=== PATIENT | female | born 1965 | race Caucasian/White ===

== ENCOUNTER 2017-07-09 08:49 | Emergency (ER) | payer OTHER, SELFPAY ==
[2017-07-09] MEDS ORDERED: NA CHLORIDE 0.9% 1,000 ML ONE (09:17)
[2017-07-09] MEDS ORDERED: ONDANSETRON 4 MG/2 ML VIAL ONE (09:17)
[2017-07-09] MEDS ORDERED: MORPHINE 4 MG/ML SYR ONE (09:17)
[2017-07-09 09:36] LABS: Hematocrit 46.2 % (36.0-45.0); MCV 87.7 fL (80-100); RBC Red Blood Cell Count 5.27 M/uL (3.86-4.86)
[2017-07-09 09:37] LABS: Absolute Monocytes 0.5 K/uL (0.1-1.3); Absolute Neutrophil 3.7 K/uL (1.8-8.0); Basophils % 0.9 % (0-1.3); Eosinophils % 2.1 % (0-4.4); Lymphocytes % 40.3 % (15.3-44.8); MPV 8.3 fL (7.6-11.3)
[2017-07-09 09:44] LABS: Bicarbonate 26 mEq/L (21-31); Glucose Level 146 mg/dL (65-120); Potassium 3.7 mEq/L (3.6-5.0); Sodium Level 139 mEq/L (135-145)
[2017-07-09 09:50] LABS: ALT/SGPT 23 IU/L (10-60); AST/SGOT 24 IU/L (10-42); Albumin 4.2 g/dL (3.2-5.5); Alkaline Phosphatase 78 IU/L (42-121); BUN Blood Urea Nitrogen 12 mg/dL (6-20); Bilirubin Direct 0.1 mg/dL (0-0.2); Bilirubin Total 0.9 mg/dL (0.3-1.2); Protein, Total 8.1 g/dL (6.0-8.3)
[2017-07-09 10:01] LABS: Urine Blood TRACE (NEG); Urine Glucose NEGATIVE (NEG); Urine Protein TRACE (NEG); Urine Specific Gravity 1.025 (1.005-1.030); Urine pH 6.5 (5.0-7.0)
[2017-07-09 10:16] LABS: Urine Amorphous Sediment 2+ /HPF (NONE SEEN); Urine Bacteria >50 /HPF (<20); Urine Culture Reflex Order REFLEXED; Urine RBC <5 /HPF (NONE SEEN)
--- NOTE | 2017-07-09 10:33 | RAD REPORT ---
EXAM DESCRIPTION: CT - Abdomen Pelvis W Contrast - 07/09/2017 10:20 am CLINICAL HISTORY: Abdominal pain right lower quadrant pain COMPARISON: none. TECHNIQUE: Computed axial tomography of the abdomen pelvis was obtained. 100 cc Isovue-300 was admin istered intravenously. Oral contrast was not requested which limits evaluation of bowel. All CT scans are performed using dose optimization technique as appropriate and may include automated exposure control or mA/KV adjustment according to patient size. FINDINGS: Fatty infiltration liver is present. A small hiatal hernia is seen Spleen, pancreas, adrenal and kidneys appear unremarkable. A sigmoidectomy has been performed. Diverticula are noted without evidence of diverticulitis. A large right inguinal hernia contains nondilated large and small bowel. The neck measures 5.8 centim eters. The herniated sac measures 15 centimeters. The appendix lies within the herni and is not clear ly visualized. IMPRESSION: Large right inguinal hernia containing small and large bowel.
--- NOTE | 2017-07-09 11:39 | ER ---
Nurse's Notes [facility] Name: Carin Mendoza Age: 51 yrs Sex: Female : 1965 Arrival Date: 07/09/2017 Time: 08:52 Bed 7 Private MD: out of town, doctor Diagnosis: Right inguinal hernia Presentation: 07/09 09:00 Presenting complaint: Patient states: RLQ pain got worse since yesterday. Has not jl7 followed up with Dr. Varghese, pt reports "I'm waiting on insurance, I can't afford it.". Transition of care: patient was not received from another setting of care. Onset of symptoms was July 08, 2017. Risk Assessment: Do you want to hurt yourself or someone else? Patient reports no desire to harm self or others. Initial Sepsis Screen: Does the patient meet any 2 criteria? No. Patient's initial sepsis screen is negative. Does the patient have a suspected source of infection? No. Patient's initial sepsis screen is negative. Care prior to arrival: None. 09:00 Method Of Arrival: Wheelchair jl7 09:00 Acuity: NOELLE 3 jl7 Triage Assessment: 09:02 General: Appears uncomfortable, Behavior is crying. Pain: Complains of pain in right jl7 lower quadrant Pain currently is 10 out of 10 on a pain scale. Pain began 1 day ago. Is continuous. EENT: No signs and/or symptoms were reported regarding the EENT system. Neuro: Level of Consciousness is awake, alert, obeys commands, Oriented to person, place, time, situation. Cardiovascular: Patient's skin is warm and dry. Respiratory: Airway is patent Respiratory effort is even, unlabored, Respiratory pattern is regular, symmetrical. GI: Abdomen is round non-distended. : No signs and/or symptoms were reported regarding the genitourinary system. Derm: Skin is pink, warm \\T\\ dry. Musculoskeletal: No signs and/or symptoms reported regarding the musculoskeletal system. 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 - Social history:: Smoking status: Patient uses tobacco products, smokes one-half pack cigarettes per day, Patient uses alcohol, on a daily basis. admits to "couple of beers" a day. Patient/guardian denies using street drugs. - Ebola Screening: : Patient negative for fever greater than or equal to 101.5 degrees Fahrenheit, and additional compatible Ebola Virus Disease symptoms Patient denies exposure to infectious person Patient denies travel to an Ebola-affected area in the 21 days before illness onset No symptoms or risks identified at this time. Screenin:23 Abuse screen: Denies threats or abuse. Denies injuries from another. Nutritional jl7 screening: No deficits noted. Tuberculosis screening: No symptoms or risk factors identified. Fall Risk IV access (20 points). Total Pressley Fall Scale indicates No Risk (0-24 pts). Assessment: 09:23 General: See triage assessment. jl7 10:30 Reassessment: Patient and/or family updated on plan of care and expected duration. Pain jl7 level reassessed. Patient is alert, oriented x 3, equal unlabored respirations, skin warm/dry/pink. Patient states feeling better. 11:30 Reassessment: Patient and/or family updated on plan of care and expected duration. Pain jl7 level reassessed. Patient is alert, oriented x 3, equal unlabored respirations, skin warm/dry/pink. 11:36 Reassessment: Dr. Mcleod at bedside discussing plan of care. jl7 Vital Signs: 09:02 BP 170 / 73; Pulse 96; Resp 22 S; Temp 99.6(O); Pulse Ox 100% on R/A; Weight 81.65 kg jl7 (R); Height 5 ft. 2 in. (157.48 cm) (R); Pain 10/10; 10:00 BP 140 / 69; Pulse 66; Resp 16; Pulse Ox 100% ; jl7 11:00 BP 157 / 86; Pulse 73; Resp 16; Pulse Ox 100% ; jl7 11:30 BP 128 / 72; Pulse 86; Resp 16; Pulse Ox 100% ; jl7 09:02 Body Mass Index 32.92 (81.65 kg, 157.48 cm) jl7 ED Course: 08:52 Patient arrived in ED. mr 08:52 Gomes, Jahala, RN is Primary Nurse. jl7 08:52 out of town, doctor is Private Physician. mr 09:01 Triage completed. jl7 09:01 Jamarcus Mcleod MD is Attending Physician. kdr 09:02 Arm band placed on right wrist. jl7 09:15 Missed attempt(s): 20 gauge in left antecubital area. jl7 09:18 Missed attempt(s): 22 gauge in right forearm. jl7 09:22 Initial lab(s) drawn, by me, sent to lab. Inserted saline lock: 20 gauge in right aa5 forearm, using aseptic technique. Blood collected. 09:23 Patient has correct armband on for positive identification. Placed in gown. Bed in low jl7 position. Call light in reach. Side rails up X 1. Pulse ox on. NIBP on. Warm blanket given. 09:46 Urine collected: clean catch specimen, santhosh colored. dh3 10:16 CT completed. Patient tolerated procedure well. Patient moved to CT via wheelchair. Patient moved back from CT. 10:20 CT Abd/Pelvis - W/Contrast In Process Unspecified. EDMS 11:52 No provider procedures requiring assistance completed. IV discontinued, intact, jl7 bleeding controlled, No redness/swelling at site. Pressure dressing applied. Administered Medications: 09:24 Drug: NS 0.9% 1000 ml Route: IV; Rate: 1 bolus; Site: right forearm; aa5 10:30 Follow up: Response: No adverse reaction; IV Status: Completed infusion jl7 09:24 Drug: morphine 4 mg Route: IVP; Site: right forearm; aa5 10:30 Follow up: Response: No adverse reaction; Pain is decreased jl7 09:24 Drug: Zofran 4 mg Route: IVP; Site: right forearm; aa5 10:30 Follow up: Response: No adverse reaction; Pain is decreased jl7 Outcome: 11:39 Discharge ordered by . kdr 11:52 Discharged to home ambulatory, with family. jl7 11:52 Condition: stable 11:52 Discharge instructions given to patient, Instructed on discharge instructions, follow up and referral plans. medication usage, Demonstrated understanding of instructions, follow-up care, medications, Prescriptions given X 2. 11:53 Patient left the ED. jl7 Signatures: Dispatcher [employer] EDDC Jamarcus Mcleod MD MD kdr Rivera, Maria mr Jones, Nelly Murdock, Giuliana, RN RN aa5 Evon Gomes RN RN jl7 Amelia Hercules 3
--- NOTE | 2017-07-09 11:39 | EDPHYS ---
Physician Documentation [facility] Name: Carin Mendoza Age: 51 yrs Sex: Female : 1965 Arrival Date: 07/09/2017 Time: 08:52 Bed 7 Private MD: out of town, doctor ED Physician Jamarcus Mcleod HPI: 07/09 09:12 This 51 yrs old Female presents to ER via Wheelchair with complaints of RLQ kdr Hernia. 09:12 The patient presents with abdominal pain right lower quadrant, abdominal distention in kdr the right lower quadrant. Onset: The symptoms/episode began/occurred gradually, 1 week(s) ago. The symptoms do not radiate. Associated signs and symptoms: Pertinent positives: nausea and vomiting, Pertinent negatives: palpitations, shortness of breath, vaginal discharge, vomiting blood. The symptoms are described as constant, sharp, vague. Modifying factors: The symptoms are alleviated by nothing, the symptoms are aggravated by breathing deeply, movement, pressure, touching the area. Severity of pain: At its worst the pain was severe in the emergency department the pain is unchanged. The patient has experienced similar episodes in the past, a few times, but today's symptoms are worse, more painful. The patient has been recently seen by a physician: Dr. Varghese about a month ago. 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 - Social history:: Smoking status: Patient uses tobacco products, smokes one-half pack cigarettes per day, Patient uses alcohol, on a daily basis. admits to "couple of beers" a day. Patient/guardian denies using street drugs. - Ebola Screening: : Patient negative for fever greater than or equal to 101.5 degrees Fahrenheit, and additional compatible Ebola Virus Disease symptoms Patient denies exposure to infectious person Patient denies travel to an Ebola-affected area in the 21 days before illness onset No symptoms or risks identified at this time. ROS: 09:12 Constitutional: Negative for fever, chills, and weight loss, Eyes: Negative for injury, kdr pain, redness, and discharge, ENT: Negative for injury, pain, and discharge, Neck: Negative for injury, pain, and swelling, Cardiovascular: Negative for chest pain, palpitations, and edema, Respiratory: Negative for shortness of breath, cough, wheezing, and pleuritic chest pain, Back: Negative for injury and pain, : Negative for injury, bleeding, discharge, and swelling, MS/Extremity: Negative for injury and deformity, Skin: Negative for injury, rash, and discoloration, Neuro: Negative for headache, weakness, numbness, tingling, and seizure activity. Psych: Negative for depression, anxiety, suicide ideation, homicidal ideation, and hallucinations, Allergy/Immunology: Negative for hives, rash, and allergies, Endocrine: Negative for neck swelling, polydipsia, polyuria, polyphagia, and marked weight changes, Hematologic/Lymphatic: Negative for swollen nodes, abnormal bleeding, and unusual bruising. 09:12 Abdomen/GI: Positive for abdominal pain, nausea and vomiting, Negative for diarrhea, constipation, abdominal cramps, abdominal distension, anorexia, dysphagia, hematemesis, black/tarry stool, rectal pain, rectal bleeding, bowel incontinence. Exam: 09:12 Constitutional: This is a well developed, well nourished patient who is awake, alert, kdr and in no acute distress. Head/Face: Normocephalic, atraumatic. Eyes: Pupils equal round and reactive to light, extra-ocular motions intact. Lids and lashes normal. Conjunctiva and sclera are non-icteric and not injected. Cornea within normal limits. Periorbital areas with no swelling, redness, or edema. Neck: Trachea midline, no thyromegaly or masses palpated, and no cervical lymphadenopathy. Supple, full range of motion without nuchal rigidity, or vertebral point tenderness. No Meningismus. Chest/axilla: Normal chest wall appearance and motion. Nontender with no deformity. No lesions are appreciated. Cardiovascular: Regular rate and rhythm with a normal S1 and S2. No gallops, murmurs, or rubs. Normal PMI, no JVD. No pulse deficits. Respiratory: Lungs have equal breath sounds bilaterally, clear to auscultation and percussion. No rales, rhonchi or wheezes noted. No increased work of breathing, no retractions or nasal flaring. Back: No spinal tenderness. No costovertebral tenderness. Full range of motion. Skin: Warm, dry with normal turgor. Normal color with no rashes, no lesions, and no evidence of cellulitis. MS/ Extremity: Pulses equal, no cyanosis. Neurovascular intact. Full, normal range of motion. Neuro: Awake and alert, GCS 15, oriented to person, place, time, and situation. Cranial nerves II-XII grossly intact. Motor strength 5/5 in all extremities. Sensory grossly intact. Cerebellar exam normal. Normal gait. Psych: Awake, alert, with orientation to person, place and time. Behavior, mood, and affect are within normal limits. 09:12 Abdomen/GI: Inspection: obese Bowel sounds: active, diminished, in all quadrants, Palpation: soft, moderate abdominal tenderness, in the right lower quadrant, mass, is not appreciated, rebound tenderness, is appreciated in the right lower quadrant. Vital Signs: 09:02 BP 170 / 73; Pulse 96; Resp 22 S; Temp 99.6(O); Pulse Ox 100% on R/A; Weight 81.65 kg 7 (R); Height 5 ft. 2 in. (157.48 cm) (R); Pain 10/10; 10:00 BP 140 / 69; Pulse 66; Resp 16; Pulse Ox 100% ; jl7 11:00 BP 157 / 86; Pulse 73; Resp 16; Pulse Ox 100% ; 7 11:30 BP 128 / 72; Pulse 86; Resp 16; Pulse Ox 100% ; 7 09:02 Body Mass Index 32.92 (81.65 kg, 157.48 cm) [facility] MDM: 09:01 Patient medically screened. [facility] 09:12 Data reviewed: vital signs, nurses notes, lab test result(s), radiologic studies. kdr 07/09 09:12 Order name: Basic Metabolic Panel; Complete Time: 11:20 kdr 07/09 09:12 Order name: CBC with Diff; Complete Time: 11:20 [facility] 07/09 09:12 Order name: Creatinine for Radiology; Complete Time: 11:20 kdr 07/09 09:12 Order name: Hepatic Function; Complete Time: 11:20 kdr 07/09 09:12 Order name: Urine Microscopic Only; Complete Time: 11:20 [facility] 07/09 09:59 Order name: Urine Dipstick--Ancillary (enter results); Complete Time: 11:20 ag 07/09 09:12 Order name: IV Saline Lock; Complete Time: 09:24 kdr 07/09 09:12 Order name: Labs collected and sent; Complete Time: :24 kdr 07/09 09:12 Order name: Urine Dipstick-Ancillary (obtain specimen); Complete Time: 09:46 kdr 07/09 09:12 Order name: CT Abd/Pelvis - W/Contrast; Complete Time: 11:20 kdr 07/09 10:18 Order name: Urine Culture EDMS Administered Medications: :24 Drug: NS 0.9% 1000 ml Route: IV; Rate: 1 bolus; Site: right forearm; aa5 10:30 Follow up: Response: No adverse reaction; IV Status: Completed infusion jl7 :24 Drug: morphine 4 mg Route: IVP; Site: right forearm; aa5 10:30 Follow up: Response: No adverse reaction; Pain is decreased jl7 09:24 Drug: Zofran 4 mg Route: IVP; Site: right forearm; aa5 10:30 Follow up: Response: No adverse reaction; Pain is decreased jl7 Disposition: 07/09/17 11:39 Discharged to Home. Impression: Right inguinal hernia. - Condition is Fair. - Discharge Instructions: Hernia, [id number], Inguinal Hernia, Adult. - Prescriptions for Zofran 4 mg Oral Tablet - take 1 tablet by ORAL route every 4-6 hours As needed; 15 tablet. Tramadol 50 mg Oral Tablet - take 1 tablet by ORAL route every 4-6 hours As needed as needed; 20 tablet. - Medication Reconciliation Form, Thank You Letter, Prescription Opioid Use form. - Follow up: Private Physician; When: 2 - 3 days; Reason: If symptoms return, Further diagnostic work-up, Recheck today's complaints, Continuance of care, Re-evaluation by your physician. - Problem is new. - Symptoms have improved. Signatures: Dispatcher [employer] EDOH Jamarcus Mcleod MD MD kdr Calderon, Audri RN RN aa5 Evon Gomes RN RN jl7 Corrections: (The following items were deleted from the chart) 11:53 11:39 07/09/2017 11:39 Discharged to Home. Impression: Right inguinal hernia. Condition jl7 is Fair. Forms are Medication Reconciliation Form, Thank You Letter, Antibiotic Education, Prescription Opioid Use. Follow up: Private Physician; When: 2 - 3 days; Reason: If symptoms return, Further diagnostic work-up, Recheck today's complaints, Continuance of care, Re-evaluation by your physician. Problem is new. Symptoms have improved. kdr
== END 2017-07-09 11:53 | disposition home or self-care (01) ==
LOC: ER 08:49
DX: K40.90 Unilateral inguinal hernia, without obstruction or gangrene, not specified as recurrent (principal); I10 Essential (primary) hypertension; F17.210 Nicotine dependence, cigarettes, uncomplicated; Z88.8 Allergy status to other drugs, medicaments and biological substances
CPT/HCPCS: 36415; 74177; 80048; 80076; 81003; 81015; 85025; 87086; 87088; 96361; 96374; 96375; 99284; J2405; J7030; Q9967

== ENCOUNTER 2022-04-09 07:46 | Inpatient (IN) | payer OTHER ==
--- OUTSIDE RECORDS SUMMARY | 2022-04-09 07:50 | XMS REPORT | Continuity of Care Document ---
:1965 Author Organization [facility] t Address [address] [facility] [address] [place] [id number] Care Team Providers Name Role Phone KELI Attending Clinician Unavailable KELI Admitting Clinician Unavailable Problems This patient has no known problems. Allergies, Adverse Reactions, Alerts This patient has no known allergies or adverse reactions. Medications This patient has no known medications. Procedures This patient has no known procedures. Encounters Start End Encounter Admission Attending Care Care Encounter Source Date/Time Date/Time Type Type Clinicians Facility Department ID 2021-12-04 2021-12-04 Outpatient IDALIA FRIEDMAN [id number] 16:33:04 16:33:04 [address] 2021-08-24 2021-08-24 Outpatient DIANE PLASCENCIA [facility] [address] 09:38:00 09:38:00 _RENETTA [id number] [facility] Program Results This patient has no known results.
[2022-04-09] MEDS ORDERED: MORPHINE 4 MG/ML SYR ONE (08:21)
[2022-04-09] MEDS ORDERED: NA CHLORIDE 0.9% 500 ML ONE (08:21)
[2022-04-09] MEDS ORDERED: ONDANSETRON 4 MG/2 ML VIAL ONE ×2 (08:21→12:56)
[2022-04-09 08:23] LABS: Absolute Lymphocytes (CBC) 3.2 K/uL (0.7-4.9); Hematocrit 47.9 % (36.0-45.0); Lymphocytes % 36.3 % (15.3-44.8); RBC Red Blood Cell Count 5.44 M/uL (3.86-4.86)
[2022-04-09 08:40] LABS: Albumin 3.7 g/dL (3.4-5.0); Bilirubin Total 0.3 mg/dL (0.2-1.0); Potassium 4.1 mmol/L (3.5-5.1)
[2022-04-09 09:21] LABS: Urine Blood Negative (Negative); Urine Glucose Negative (Negative); Urine Protein Negative (Negative)
--- NOTE | 2022-04-09 10:13 | RAD REPORT ---
EXAM DESCRIPTION: CT - Abdomen Pelvis W Contrast - 04/09/2022 9:03 am CLINICAL HISTORY: ABD PAIN COMPARISON: Abdomen Pelvis W Contrast dated 07/09/2017 TECHNIQUE: Thin cut axial CT imaging of the abdomen and pelvis was performed following intravenous a dministration of 95 mL Isovue 300. Multiplanar reformats were generated and reviewed. All CT scans are performed using dose optimization technique as appropriate and may include automated exposure control or mA/KV adjustment according to patient size. FINDINGS: No suspicious findings in the lung bases. The liver, spleen, and pancreas show no suspicious findings. Patient is status post cholecystectomy. No significant intra or extrahepatic biliary ductal dilation. Symmetric renal function is seen with no hydronephrosis or suspicious renal mass. No free air, free fluid or inflammatory stranding. Large right lower quadrant ventral hernia, grossly stable in size, containing loops of small bowel, a s well as a long segment of the ascending colon. There are moderately distended fluid-filled small dev wel loops, with air-fluid levels, with a transition point suspected along the medial lower aspect of the hernia sac, see axial image 80/98, and coronal image 23/123. Sequelae of distal colon resection w ith a colorectal anastomosis are noted. The urinary bladder is without significant finding. No suspicious bony findings. IMPRESSION: Distended small bowel loops, with a focal transition point at the level of the ileum, pr esent within the medial lower aspect of a large right lower quadrant ventral hernia sac, concerning f or small bowel obstruction. The findings were communicated to Jadon Tuttle on 04/09/2022 at 10:08 hours.
--- NOTE | 2022-04-09 10:30 | EDPHYS ---
Physician Documentation [facility] Name: Carin Mendoza Age: 56 yrs Sex: Female : 1965 Arrival Date: 04/09/2022 Time: 07:50 Bed 16 Private MD: ED Physician Simba Yousif HPI: 04/09 08:33 This 56 yrs old Female presents to ER via Ambulatory with complaints of rn Abdominal Pain - hernia. 08:33 The patient presents with abdominal pain abdominal distention. Onset: The rn symptoms/episode began/occurred last night. The symptoms do not radiate. Associated signs and symptoms: Pertinent positives: diarrhea, nausea, Pertinent negatives: blood in stools, chest pain, constipation, fever, shortness of breath. The symptoms are described as crampy, sharp. Modifying factors: The symptoms are alleviated by nothing, the symptoms are aggravated by touching the area. Severity of pain: At its worst the pain was moderate in the emergency department the pain is unchanged. The patient has not experienced similar symptoms in the past. The patient has not recently seen a physician. Historical: - Allergies: 07:56 Axid; ap3 - PMHx: 07:56 Diabetes - NIDDM; Hyperlipidemia; Hypertension; ap3 - Immunization history:: Client reports receiving the 2nd dose of the Covid vaccine. - Social history:: Smoking status: Patient reports the use of cigarette tobacco products, smokes one pack cigarettes per day. - Family history:: not pertinent. - Hospitalizations: : No recent hospitalization is reported. ROS: 08:33 Constitutional: Negative for fever, chills, and weight loss, Eyes: Negative for injury, rn pain, redness, and discharge, Neck: Negative for injury, pain, and swelling, Cardiovascular: Negative for chest pain, palpitations, and edema, Respiratory: Negative for shortness of breath, cough, wheezing, and pleuritic chest pain, Abdomen/GI: + lower abd pain and nausea Back: Negative for injury and pain, : Negative for injury, bleeding, discharge, and swelling, MS/Extremity: Negative for injury and deformity, Skin: Negative for injury, rash, and discoloration, Neuro: Negative for headache, weakness, numbness, tingling, and seizure. Exam: 08:33 Constitutional: This is a well developed, well nourished patient who is awake, alert, rn and in no acute distress. Head/Face: Normocephalic, atraumatic. Cardiovascular: Regular rate and rhythm. No pulse deficits. Respiratory: No increased work of breathing, no retractions or nasal flaring. Abdomen/GI: soft, + RLQ tenderness with large hernia, no skin changes, hernia soft. No peritoneal signs. Skin: Warm, dry MS/ Extremity: Pulses equal, no cyanosis. Neuro: Awake and alert, GCS 15 Vital Signs: 07:54 BP 157 / 80; Pulse 80; Resp 19; Temp 98.2; Pulse Ox 98% ; Pain 0/10; ap3 07:57 BP 161 / 98; Pulse 77; Resp 16; Pulse Ox 98% on R/A; db 09:30 BP 118 / 67; Pulse 67; Resp 18; Pulse Ox 97% on R/A; db 10:00 BP 131 / 76; Pulse 66; Resp 16; Pulse Ox 96% on R/A; db 10:30 BP 126 / 65; Pulse 57; Resp 18; Pulse Ox 100% on R/A; db 11:05 BP 149 / 91; Pulse 68; Resp 18; Pulse Ox 100% on R/A; db 12:00 BP 124 / 60; Pulse 68; Resp 18; Pulse Ox 96% on R/A; db MDM: 07:56 Patient medically screened. rn 10:27 Differential diagnosis: bowel obstruction, non-specific abd pain, Perf. Duodenal Ulcer, rn Peritonitis, bowel obstruction, incarcerated hernia. Data reviewed: vital signs, nurses notes, lab test result(s), radiologic studies, CT scan, and as a result, I will admit patient. Consideration of Admission/Observation Patient was admitted/placed on observation. Escalation of care including admission/observation considered. Management of patient was discussed with the following: Manager Implementation: Management of case discussed with Dr. Plunkett, no need for NG tube if not vomiting. Wants admission to hospitalist service.. I considered the following discharge prescriptions or medication management in the emergency department Medications were administered in the Emergency Department. See MAR. Independent interpretation of the following test(s) in the Emergency Department CT Scan: My interpretation is CT abdomen images with obvious small bowel obstruction and large amount of contents in hernia. Counseling: I had a detailed discussion with the patient and/or guardian regarding: the historical points, exam findings, and any diagnostic results supporting the discharge/admit diagnosis, lab results, radiology results, the need for further work-up and treatment in the hospital. Response to treatment: the patient's symptoms have mildly improved after treatment, and as a result, I will admit patient. 04/09 07:59 Order name: CBC with Diff; Complete Time: 08:41 rn 04/09 07:59 Order name: CMP; Complete Time: 08:41 rn 04/09 07:59 Order name: Lipase; Complete Time: 08:41 rn 04/09 07:59 Order name: CT Abd/Pelvis - IV Contrast Only; Complete Time: 10:23 rn 04/09 07:59 Order name: IV Saline Lock; Complete Time: 08:18 rn 04/09 07:59 Order name: Labs collected and sent; Complete Time: 08:18 rn 04/09 09:10 Order name: Urine Dipstick-Ancillary (obtain specimen); Complete Time: 09:14 rn 04/09 09:21 Order name: Urine Dipstick-Ancillary; Complete Time: 09:46 EDMS 04/09 11:58 Order name: SARS-COV-2 Antigen Rapid bd 04/09 11:59 Order name: NPO EDMS Administered Medications: 08:20 Drug: NS 0.9% 500 ml Route: IV; Rate: bolus; Site: left antecubital; db 09:36 Follow up: Response: No adverse reaction; IV Status: Completed infusion; IV Intake: db 500ml 08:21 Drug: morphine 4 mg Route: IVP; Infused Over: 4 mins; Site: left antecubital; db 09:36 Follow up: Response: No adverse reaction; Pain is decreased db 08:21 Drug: Zofran (Ondansetron) 4 mg Route: IVP; Site: left antecubital; db 09:36 Follow up: Response: No adverse reaction; Nausea is decreased db 11:37 Drug: Zosyn (piperacillin-tazobactam) 3.375 grams Route: IVPB; Infused Over: 60 mins; db Site: left antecubital; 12:18 Follow up: Response: No adverse reaction; IV Status: Completed infusion; IV Intake: db 100ml 12:00 Drug: Phenergan (promethazine) 12.5 mg Route: IVP; Site: left antecubital; db 12:18 Follow up: Response: No adverse reaction db Disposition Summary: 04/09/22 10:29 Hospitalization Ordered Hospitalization Status: Inpatient Admission rn Provider: Alfred Yousif rn Location: Telemetry/MedSurg (Inpatient) rn Condition: Stable rn Problem: new rn Symptoms: have improved rn Bed/Room Type: Standard rn Room Assignment: rn Diagnosis - Other and unspecified ventral hernia with obstruction, without gangrene rn Forms: - Medication Reconciliation Form rn - SBAR form rn Signatures: Dispatcher [employer] EDMS Simba Yousif MD MD rn Prokisch, Amanda, RN RN ap3 Patience Smith RN RN db Corrections: (The following items were deleted from the chart) 07:57 07:56 Home Meds: ranitidine HCl 75 mg Oral tab 1 tab once daily; ap3 ap3
--- NOTE | 2022-04-09 10:30 | ER ---
Nurse's Notes [facility] Name: Carin Mendoza Age: 56 yrs Sex: Female : 1965 Arrival Date: 04/09/2022 Time: 07:50 Bed 16 Private MD: Diagnosis: Other and unspecified ventral hernia with obstruction, without gangrene Presentation: 04/09 07:54 Chief complaint: Patient states: she started having diarrhea 2-3 days ago, and ap3 abdominal pain which started yesterday. patient reports she is unsure if it is all related to her unrepaired hernia or not. patient states she feels like her hernia is hard, and it typically is not that way. Coronavirus screen: At this time, the client does not indicate any symptoms associated with coronavirus-19. Ebola Screen: No symptoms or risks identified at this time. Initial Sepsis Screen: Does the patient meet any 2 criteria? No. Patient's initial sepsis screen is negative. Does the patient have a suspected source of infection? No. Patient's initial sepsis screen is negative. Risk Assessment: Do you want to hurt yourself or someone else? Patient reports no desire to harm self or others. Onset of symptoms was April 06, 2022. 07:54 Method Of Arrival: Ambulatory ap3 07:54 Acuity: NOELLE 3 ap3 Triage Assessment: 07:57 General: Appears uncomfortable, Behavior is calm, cooperative, appropriate for age. ap3 Pain: Complains of pain in right upper quadrant, left upper quadrant and right lower quadrant Pain currently is 0 out of 10 on a pain scale. at worst was 10 out of 10 on a pain scale. Neuro: Level of Consciousness is awake, alert, obeys commands, Oriented to person, place, time, situation. Cardiovascular: Patient's skin is warm and dry. Respiratory: Airway is patent Respiratory effort is even, unlabored, Respiratory pattern is regular, symmetrical. GI: Reports lower abdominal pain, upper abdominal pain, diarrhea. Historical: - Allergies: 07:56 Axid; ap3 - PMHx: 07:56 Diabetes - NIDDM; Hyperlipidemia; Hypertension; ap3 - Immunization history:: Client reports receiving the 2nd dose of the Covid vaccine. - Social history:: Smoking status: Patient reports the use of cigarette tobacco products, smokes one pack cigarettes per day. - Family history:: not pertinent. - Hospitalizations: : No recent hospitalization is reported. Screenin:58 Abuse screen: Denies threats or abuse. Nutritional screening: No deficits noted. ap3 Tuberculosis screening: No symptoms or risk factors identified. 12:22 [facility] ED Fall Risk Assessment (Adult) History of falling in the last 3 months, db including since admission No falls in past 3 months (0 pts) Confusion or Disorientation No (0 pts) Intoxicated or Sedated No (0 pts) Impaired Gait No (0 pts) Mobility Assist Device Used No (0 pt) Altered Elimination No (0 pt) Score/Fall Risk Level 0 - 2 = Low Risk Oriented to surroundings, Maintained a safe environment. Assessment: 08:10 Reassessment: Patient appears in no apparent distress at this time. Patient and/or db family updated on plan of care and expected duration. Pain level reassessed. Patient is alert, oriented x 3, equal unlabored respirations, skin warm/dry/pink. patient complains abdominal hernia that she has had for several years. States pain has recently increased and feels like has "cramping" abdominal pain. Patient denies difficulty voiding. Noted large right lower abdominal hernia the size of a cantaloupe. General: Appears in no apparent distress. comfortable, Behavior is calm, cooperative. Pain: Complains of pain in abdomen and right lower quadrant. Neuro: Level of Consciousness is awake, alert, obeys commands, Oriented to person, place, time, situation, Speech is normal. Respiratory: No deficits noted. Airway is patent Respiratory effort is even, unlabored, Respiratory pattern is regular, symmetrical. GI: Bowel sounds present X 4 quads. Abd is soft Abdomen is tender to palpation in right lower quadrant. 08:10 Pain: Pain currently is 10 out of 10 on a pain scale. db 08:10 Reassessment: Patient appears in no apparent distress at this time. Patient and/or db family updated on plan of care and expected duration. Pain level reassessed. Patient is alert, oriented x 3, equal unlabored respirations, skin warm/dry/pink. Patient states feeling better. Patient states symptoms have improved. Pain: Pain currently is 0 out of 10 on a pain scale. 10:34 Reassessment: Patient appears in no apparent distress at this time. Patient and/or db family updated on plan of care and expected duration. Pain level reassessed. Patient is alert, oriented x 3, equal unlabored respirations, skin warm/dry/pink. 10:51 Reassessment: Patient appears in no apparent distress at this time. Patient and/or db family updated on plan of care and expected duration. Pain level reassessed. Patient is alert, oriented x 3, equal unlabored respirations, skin warm/dry/pink. hospitalist at patient bedside Patient denies pain at this time. Patient states feeling better. 11:05 Reassessment: Patient appears in no apparent distress at this time. Patient and/or db family updated on plan of care and expected duration. Pain level reassessed. Patient is alert, oriented x 3, equal unlabored respirations, skin warm/dry/pink. Patient states feeling better. 11:49 Reassessment: Patient complaining of nausea. Notified Dr. Yousif. New order for db phenergan received. 12:05 Reassessment: Surgery consent signed and on the chart. db 12:05 Reassessment: Patient appears in no apparent distress at this time. Patient and/or db family updated on plan of care and expected duration. Pain level reassessed. Patient is alert, oriented x 3, equal unlabored respirations, skin warm/dry/pink. patient to OR via wheelchair with nurse. Vital Signs: 07:54 BP 157 / 80; Pulse 80; Resp 19; Temp 98.2; Pulse Ox 98% ; Pain 0/10; ap3 07:57 BP 161 / 98; Pulse 77; Resp 16; Pulse Ox 98% on R/A; db 09:30 BP 118 / 67; Pulse 67; Resp 18; Pulse Ox 97% on R/A; db 10:00 BP 131 / 76; Pulse 66; Resp 16; Pulse Ox 96% on R/A; db 10:30 BP 126 / 65; Pulse 57; Resp 18; Pulse Ox 100% on R/A; db 11:05 BP 149 / 91; Pulse 68; Resp 18; Pulse Ox 100% on R/A; db 12:00 BP 124 / 60; Pulse 68; Resp 18; Pulse Ox 96% on R/A; db ED Course: 07:50 Patient arrived in ED. am2 07:56 Simba Yousif MD is Attending Physician. rn 07:56 Triage completed. ap3 07:58 Arm band placed on left wrist. ap3 08:13 Smith, Patience, RN is Primary Nurse. db 08:18 CBC with Diff Sent. kj1 08:18 CMP Sent. kj1 08:18 Lipase Sent. kj1 08:18 Initial lab(s) drawn, by me, sent to lab. kj1 08:18 Inserted saline lock: 20 gauge in right antecubital area, using aseptic technique. kj1 Blood collected. 08:23 Patient has correct armband on for positive identification. Placed in gown. Bed in low db position. Call light in reach. Side rails up X 1. Pulse ox on. NIBP on. Warm blanket given. 09:57 CT Abd/Pelvis - IV Contrast Only In Process Unspecified. EDMS 10:29 Alfred Yousif MD is Hospitalizing Provider. rn 12:22 No provider procedures requiring assistance completed. Patient admitted, IV remains in db place. Administered Medications: 08:20 Drug: NS 0.9% 500 ml Route: IV; Rate: bolus; Site: left antecubital; db 09:36 Follow up: Response: No adverse reaction; IV Status: Completed infusion; IV Intake: db 500ml 08:21 Drug: morphine 4 mg Route: IVP; Infused Over: 4 mins; Site: left antecubital; db 09:36 Follow up: Response: No adverse reaction; Pain is decreased db 08:21 Drug: Zofran (Ondansetron) 4 mg Route: IVP; Site: left antecubital; db 09:36 Follow up: Response: No adverse reaction; Nausea is decreased db 11:37 Drug: Zosyn (piperacillin-tazobactam) 3.375 grams Route: IVPB; Infused Over: 60 mins; db Site: left antecubital; 12:18 Follow up: Response: No adverse reaction; IV Status: Completed infusion; IV Intake: db 100ml 12:00 Drug: Phenergan (promethazine) 12.5 mg Route: IVP; Site: left antecubital; db 12:18 Follow up: Response: No adverse reaction db Medication: 12:23 VIS not applicable for this client. db Intake: 09:36 IV: 500ml; Total: 500ml. db 12:18 IV: 100ml; Total: 600ml. db Outcome: 10:29 Decision to Hospitalize by Provider. rn 12:22 Admitted to OR accompanied by nurse, via wheelchair. db 12:22 Condition: stable 12:22 Instructed on the need for admit. 12:30 Patient left the ED. db Signatures: Dispatcher [employer] EDSimba Troncoso MD MD rn Moreno, Amanda am2 Patsy Villa RN RN ap3 Renny Dubondis kj1 Patience Smith RN RN db Corrections: (The following items were deleted from the chart) 07:57 07:56 Home Meds: ranitidine HCl 75 mg Oral tab 1 tab once daily; ap3 ap3 09:37 08:10 Reassessment: Patient appears in no apparent distress at this time. Patient db and/or family updated on plan of care and expected duration. Pain level reassessed. Patient is alert, oriented x 3, equal unlabored respirations, skin warm/dry/pink. patient complains abdominal hernia that she has had for several years. States pain has recently increased and feels like has "cramping" abdominal pain. Patient denies difficulty voiding. Noted large right lower abdominal hernia the size of a cantaloupe db
[2022-04-09] MEDS ORDERED: PIPERACIL/TAZO 3.375 GM VIAL IV ONE (10:51)
[2022-04-09] MEDS ORDERED: NA CHLORIDE 0.9% 100 ML ONE (10:51)
[2022-04-09] MEDS ORDERED: PROMETHAZINE INJ 25 MG/ML AMP ONE (11:58)
[2022-04-09] MEDS ORDERED: HYDRALAZINE HCL 20 MG/ML VIAL IV PRN (12:26)
[2022-04-09] MEDS ORDERED: NA CHLORIDE 0.9% 1,000 ML ONE (12:27)
--- NOTE | 2022-04-09 12:28 | P.HP ---
Certification for Inpatient Patient admitted to: Inpatient With expected LOS: >2 Midnights Patient will require the following post-hospital care: None Practitioner: I am a practitioner with admitting privileges, knowledge of patient current condition, hospital course, and medical plan of care. Services: Services provided to patient in accordance with Admission requirements found in Title 42 Section 412.3 of the Code of Federal Regulations Patient History Date of Service: 04/09/22 Reason for admission: Abdominal pain History of Present Illness: Patient is a 56-year-old female with a past medical history significant for DM 2, HLD, hypertension, ventral hernia, nicotine dependence who presents with complaint of abdominal pain and abdominal distention onset yesterday. Patient rated pain as 10/10 in severity and described pain as cramping in quality. Patient reported that she has been having a ventral hernia for the past 8 years and has been increasing in size recently. Patient reported that she noticed remarkable increase in size of the hernia yesterday with increased tightness. Patient reported associated signs and symptoms of nausea. Patient denies any other signs and symptoms. Symptoms are aggravated by coughing and relieved by nothing. Patient decided to present to the hospital due to worsening symptoms. Allergies nizatidine [From Axid] Allergy (Unverified 09/15/16 18:10) Unknown - Past Medical/Surgical History -: DM 2 -: Ventria Hernia -: HTN -: HLD -: Nicotine dependence -: Cholecystectomy -: - Family History Family History: Reviewed- Non-Contributory - Social History Smoking Status: Current every day smoker Counseled patient to stop smoking for: less than 10 minutes Smoking therapy provided: Yes Patient receptive to therapy: Yes Alcohol use: Yes CD- Drugs: No Caffeine use: Yes Place of Residence: Home Review of Systems General: Unremarkable Eyes: Unremarkable ENT: Unremarkable Respiratory: Unremarkable Cardiovascular: Unremarkable Gastrointestinal: Nausea, Abdominal Pain, Distention Genitourinary: Unremarkable Musculoskeletal: Unremarkable Integumentary: Unremarkable Neurological: Unremarkable Lymphatics: Unremarkable Physical Examination - Physical Exam General: Alert, In no apparent distress, Oriented x3, Cooperative HEENT: Atraumatic, PERRLA, Mucous membr. moist/pink, EOMI, Sclerae nonicteric Neck: Supple, 2+ carotid pulse no bruit, No LAD, Without JVD or thyroid abnormality Respiratory: Clear to auscultation bilaterally, Normal air movement Cardiovascular: No edema, Regular rate/rhythm, Normal S1 S2 Capillary refill: <2 Seconds Gastrointestinal: Hypoactive, Distended Musculoskeletal: No clubbing, No swelling, No contractures Integumentary: No rashes, No breakdown, No significant lesion Neurological: Normal speech, Normal tone, Normal affect Lymphatics: No axilla or inguinal lymphadenopathy - Studies Laboratory Data (last 24 hrs) 04/09/22 08:15: Sodium 136, Potassium 4.1, BUN 8, Creatinine 0.42 L, Glucose 145 H, Total Bilirubin 0.3, AST 7 L, ALT 14, Alkaline Phosphatase 102, Lipase 23 04/09/22 08:15: WBC 8.70, Hgb 16.1 H, Hct 47.9 H, Plt Count 242 Assessment and Plan - Plan --SBO. Noted on imaging. Surgeon consulted. Plans to take patient to the OR. Surgeon recommends to hold off on NG tube if patient is not vomiting. Continue supportive care. --Acute pain. We will manage pain with current pain medication regimen. --DM2. BS monitoring with sliding scale insulin. --Hyperlipidemia. Continue home medication. --Hypertension. Poorly controlled. Continue home medications and hydralazine as needed -- Nicotine dependence. Patient counseled on tobacco cessation. Refuses nicotine patch. -- Ventral hernia. Patient to be taken to the OR by surgeon for possible surgery. Continue supportive care. --DVT prophylaxis with SCDs. Discharge Plan: Home Plan to discharge in: Greater than 2 days - Advance Directives Does patient have a Living Will: No Does patient have a Durable POA for Healthcare: No - Code Status/Comfort Care Code Status Assessed: Yes Physician Review: Patient Assessed, Agree with Above Assessment and Plan Critical Care: No
[2022-04-09 12:32] LABS: SARS-CoV-2 Antigen Rapid Res Negative (Negative)
[2022-04-09] MEDS ORDERED: FENTANYL CITR 100 MCG/2 ML ONE (12:50)
[2022-04-09] MEDS ORDERED: MIDAZOLAM HCL 2 MG/2 ML INJ ONE (12:50)
[2022-04-09] MEDS ORDERED: propofoL 200 MG/20 ML VIAL IV ONE (12:50)
[2022-04-09] MEDS ORDERED: ROCURONIUM 50 MG/5 ML VIAL IV ONE ×2 (12:52→13:46)
[2022-04-09] MEDS ORDERED: LIDOCAINE 1% MPF 2 ML AMPULE ONE (12:53)
[2022-04-09] MEDS ORDERED: dexAMETHasone 4 MG/ML VIAL ONE (13:42)
[2022-04-09] MEDS ORDERED: HYDROMORPHONE HCL 1 MG/ML INJ ONE (14:38)
[2022-04-09] MEDS ORDERED: SUGAMMADEX SODIUM 200 MG/2 ML VIAL IV ONE (15:22)
[2022-04-09] MEDS ORDERED: GLUCAGON 1 MG/VIAL IM PRN (15:43)
--- NOTE | 2022-04-09 15:54 | P.OP ---
Preoperative diagnosis: Small Bowel Obstruction due to ventral hernia Postoperative diagnosis: Small Bowel Obstruction due to ventral hernia Primary procedure: Laparoscopic hybrid Ventral hernia repair with mesh Secondary procedure: Adhesiolysis < 2 hours Anesthesia: GETA + Local Estimated blood loss: 100cc Specimen: none Findings: 5cm hernia neck with incarcerated small bowel, colon Complications: None Implants: Ventralite ST 11.4cm round, sorbafix Transferred to: Recovery Room Condition: Good
[2022-04-09] MEDS ORDERED: D10W 250 ML BAG IV PRN (16:02)
[2022-04-09] MEDS ORDERED: KETOROLAC 30 MG/ML INJ ONE (16:07)
[2022-04-09] MEDS: HYDROMORPHONE HCL 1 MG/ML INJ ONE ×4 (16:21→17:02)
[2022-04-09] MEDS ORDERED: INSULIN -REGULAR HUMAN 50 UNIT/0.5 ML ML SQ SCH (16:30)
--- NOTE | 2022-04-09 16:52 | RAD REPORT ---
EXAM DESCRIPTION: RAD - Abdomen 1 View (KUB) - 04/09/2022 4:44 pm CLINICAL HISTORY: Placement of NGT/OGT. Post Insertion. COMPARISON: No comparisonsAbdomen Pelvis W Contrast dated 04/09/2022 FINDINGS: Paucity of small bowel gas. No acute osseous abnormality.Visualized lungs are unremarkable .Scattered surgical clips noted. NG tube overlies the stomach. IMPRESSION: Enteric tube tip overlies the stomach in satisfactory position.
[2022-04-09] MEDS: D5.45NS W/KCL 20MEQ 1,000 ML IV SCH (17:42)
[2022-04-09] MEDS: ONDANSETRON 4 MG/2 ML VIAL IV PRN (17:53)
[2022-04-09] MEDS: MORPHINE 4 MG/ML SYR IV PRN ×2 (17:53→20:50)
[2022-04-09] MEDS: PIPER TAZO 3.375 GM in NA CHLORIDE 0.9% 100 ML IV SCH (17:54)
[2022-04-09] MEDS: INSULIN -REGULAR HUMAN 50 UNIT/0.5 ML ML SQ SCH ×2 (17:54→21:00)
[2022-04-09 18:53] VITALS: BMI 30.2
--- NOTE | 2022-04-09 19:08 | OP ---
Date of Procedure: 04/09/2022 Surgeon: Jaguar Plunkett MD, Brief History Of Present Illness: The patient is a 56-year-old female, who presents to the hospital with an 8-year history of a right lower quadrant abdominal wall hernia. She believes it was in the a missy of incision where she had a previous colectomy, but she is uncertain of this as she has had a his tory of a prior colectomy secondary to diverticulitis she states. It was performed predominant lapar oscopically, but she did have an incision for extraction, but she cannot recall the location of this incision. She has had this hernia for approximately 8 years. It has been getting progressively larg er and larger and has had intermittent episodes where she has had pain and swelling, but never to thi s severity, which made her come to the emergency room today. She presented with evidence of small dev wel obstruction within her ventral right lower quadrant abdominal hernia. I saw the patient, who had significant abdominal pain during examination and with CT findings evidence of small bowel obstructi on likely due to hernia, I opted to proceed with surgery at this point. Preoperative Diagnosis: Small bowel obstruction secondary to ventral abdominal wall hernia. Postoperative Diagnosis: Small bowel obstruction secondary to ventral abdominal wall hernia. Procedures Performed: 1.Laparoscopic hybrid ventral hernia repair with mesh. 2.Adhesiolysis greater than approximately 2 hours. Anesthesia: General endotracheal plus local with 0.5% Marcaine. Estimated Blood Loss: 100 cc. Specimen: None. Findings: Approximately 5 cm hernia neck with incarcerated small bowel as well as colon with severe significant adhesions in her hernia sac in the right lower quadrant. Complications: None. Implants: Ventralight ST mesh with Echo Positioning System, 11.4 cm round mesh utilized and SorbaFix absorbable fixation tacks. Disposition: The patient was transferred to the recovery room in good condition. Procedure In Detail: After informed consent was obtained, the patient was prepped and draped in the usual sterile fashion after adequate anesthesia achieved. The area of the left upper quadrant was an esthetized with 0.25% Marcaine, sharply incised. A 5 mm 0-degree optical trocar was introduced in th e abdomen without evidence of complication. Insufflation was obtained to 15 mmHg at this time. Ther e were no injury vital structures upon entry into the abdomen. Additional trocar was placed in the l eft lower quadrant. This was similarly anesthetized, sharply incised, and a 12 mm trocar was placed under direct visualization without evidence of complication. A left mid abdominal 5 mm trocar was th en placed under direct visualization without evidence of complication after appropriately anesthetizi ng the tract as well. I then proceeded to place external pressure on her ventral abdominal hernia an d when I was unable to deliver this completely, I used gentle traction using atraumatic graspers on t he internal aspect of the hernia while applying external pressure gently, but I was unable to reduce it. I was able to traverse the camera into the hernia sac and noted significant scar tissues, which could not be accessed through the laparoscopic approach due to the significant small bowel and colon which was firmly adhered into the section. As such, I opted to make a counter incision over the righ t lower quadrant overlying the hernia sac as it was quite inflated with pneumoperitoneum. At this po int, I turned off the gas and left the pneumoperitoneum in place and I ultimately dissected, found an area where there was a safe entry zone without bowel attached using transillumination by putting the camera through this area and I marked on the skin. I then made an incision in the skin in a transve rse orientation in the right lower quadrant overlying the hernia through the skin with a 10 blade. I then dissected down using electrocautery through the subcutaneous fat to expose the hernia sac. At this point, I found a safe entry point which was easily transilluminated. I then sharply entered thi s safely without evidence of complication. I then opened the hernia sac circumferentially and perfor med extensive adhesiolysis using Metzenbaum scissors and gentle dissection to remove the colon, small bowel and multiple interloop adhesions. The transition point was found at this point and was due to torsion around adhesions. This was taken down and immediately the obstructive process was relieved and the bowel returned to normal caliber. At this point, I reduced all of the hernia contents to the intraabdominal position. I then grasped, elevated the abdominal fascia and closed using a #1 looped PDS with good apposition of the fascia at this point. I then re-insufflated the abdomen at this poi nt using insufflation and found the suture closure to be airtight as I inspected it laparoscopically. At this point, the defect was sized and found to be less than 5 cm in size. I therefore brought an 11.[address] mesh with Echo Positioning System into the field, brought in through the 12 mm trocar and deployed it using the balloon deployment system in the central portion of the defec t and retrieved it using a Jai-Lester suture passer superior to the incision at this point. The balloon was inflated. The mesh was flattened out and oriented properly. I then used SorbaFix absor bable fixation tacks to secure to the anterior abdominal wall in the right lower quadrant with good a pposition of the mesh to the anterior abdominal wall. At this point, I removed the balloon deploymen t system, found to be intact on the back table and I secured the mesh to the anterior abdominal wall using a double-crown orientation with approximately 60 tacks to the anterior abdominal wall with good apposition of the mesh to the anterior abdominal wall. At this point, I inspected the defect on the skin side and found to be intact without any screws coming through and I opted to rotate the patient away. I then closed the 12 mm trocar site using a Jai-Lester suture passer with 0 Vicryl in a running fashion with good approximation of tissues. I then inspected the abdomen last time. No hemo static maneuvers were required. I then deflated the abdomen completely under direct visualization wi thout evidence of complication. The remaining trocars were removed. All skin incisions were copious ly irrigated with warm saline, particularly soaking the right lower quadrant incision area. The phylicia ia sac was imbricated at this point and I closed the all skin incisions with interrupted mary jo and a sterile dressing placed over top. The patient tolerated the procedure well without evidence of com plication and transferred to PACU in good condition. All counts were correct at the end of the case. TK/MODL Voice ID: [id number] Report ID: [id number]
[2022-04-10] MEDS: PIPER TAZO 3.375 GM in NA CHLORIDE 0.9% 100 ML IV SCH ×3 (00:55→16:33)
[2022-04-10] MEDS: MORPHINE 4 MG/ML SYR IV PRN ×6 (01:43→21:24)
[2022-04-10] MEDS: ONDANSETRON 4 MG/2 ML VIAL IV PRN (01:48)
[2022-04-10] MEDS: D5.45NS W/KCL 20MEQ 1,000 ML IV SCH ×4 (03:00→16:35)
[2022-04-10 05:44] LABS: Absolute Lymphocytes (CBC) 0.9 K/uL (0.7-4.9); Hematocrit 45.1 % (36.0-45.0); Lymphocytes % 14.4 % (15.3-44.8); MCV 88.9 fL (80-100); MPV 7.4 fL (7.6-11.3); RBC Red Blood Cell Count 5.07 M/uL (3.86-4.86)
[2022-04-10] MEDS: INSULIN -REGULAR HUMAN 50 UNIT/0.5 ML ML SQ SCH ×4 (07:30→21:00)
[2022-04-10 07:43] LABS: Phosphorus 2.6 mg/dL (2.5-4.9); Potassium 3.3 mmol/L (3.5-5.1)
--- NOTE | 2022-04-10 08:32 | P.PN ---
Date of Service: 04/10/22 Subjective: epigastric discomfort no nausea NGT in place ambulated, requesting if smith can be dc'd ROS: A complete review of systems was performed and is negative except as mentioned above Physical Exam Gen: AOx3, NAD HEENT: normal conjunctiva, sclera anicteric, NGT in place CV: regular rate/rhythm, no edema Pulm: nonlabored respirations, clear bilaterally Abd: soft, mild tenderness throughout Neuro: normal speech/affect, moves all extremities Problem List SBO secondary to incarcerated hernia; now s/p repair DM2 Hyperlipidemia Hypertension Ventral hernia DVT prophylaxis with SCDs surgery consulted, patient underwent hernia repair, lysis of adhesions; for incarcerated hernia NGT to LIWS smith IV fluids empiric antibiotics confirm, and resume home meds as appropriate pain meds as needed sliding scale insulin refused nicotine patch - h/o nicotine depenence Code: full Dispo: home, ~2-3 days
[2022-04-10] MEDS ORDERED: PIPERACIL/TAZO 3.375 GM VIAL IV ONE (08:40)
[2022-04-10] MEDS ORDERED: NA CHLORIDE 0.9% 100 ML ONE (08:41)
[2022-04-10] MEDS: ENOXAPARIN 40 MG/0.4 ML SQ SCH (08:46)
[2022-04-10] MEDS ORDERED: KCL 20 MEQ/100 mL IVPB 20 MEQ/100 ML BAG IV SCH (14:00)
[2022-04-11] MEDS: MORPHINE 4 MG/ML SYR IV PRN ×4 (00:15→23:32)
[2022-04-11] MEDS: D5.45NS W/KCL 20MEQ 1,000 ML IV SCH ×2 (01:44→17:05)
[2022-04-11] MEDS: PIPER TAZO 3.375 GM in NA CHLORIDE 0.9% 100 ML IV SCH ×3 (01:45→17:05)
[2022-04-11 04:20] LABS: Absolute Lymphocytes (CBC) 2.3 K/uL (0.7-4.9); Hematocrit 40.3 % (36.0-45.0); Lymphocytes % 29.7 % (15.3-44.8); MCV 88.9 fL (80-100); MPV 7.4 fL (7.6-11.3); RBC Red Blood Cell Count 4.53 M/uL (3.86-4.86)
[2022-04-11 04:37] LABS: Magnesium 2.1 mg/dL (1.6-2.4); Phosphorus 2.1 mg/dL (2.5-4.9); Potassium 3.5 mmol/L (3.5-5.1)
[2022-04-11] MEDS ORDERED: KCL 20 MEQ/100 mL IVPB 20 MEQ/100 ML BAG IV SCH (07:00)
[2022-04-11] MEDS: INSULIN -REGULAR HUMAN 50 UNIT/0.5 ML ML SQ SCH ×4 (07:30→20:52)
[2022-04-11] MEDS ORDERED: POTASSIUM PHOS IN 0.9 % NACL 15 MMOL/250 ML BAG IV ONE (09:00)
[2022-04-11] MEDS: ENOXAPARIN 40 MG/0.4 ML SQ SCH (09:05)
--- NOTE | 2022-04-11 09:18 | P.PN ---
Subjective Date of Service: 04/11/22 Chief Complaint: Abdominal pain Subjective: Improving (ambulatory, no gas yet, no nausea, minimal pain) Physical Examination - Vital Signs Temperature: 97.2 F Blood Pressure: 104/55 Pulse: 68 Respirations: 16 Pulse Ox (%): 95 - Physical Exam General: Alert, In no apparent distress, Cooperative Respiratory: Normal air movement Gastrointestinal: Other (soft, mild appropriate TTP, ND, incisions clean and dry) Assessment And Plan - Current Problems (Diagnosis) (1) Small bowel obstruction Current Visit: Yes Status: Acute (2) Ventral hernia with obstruction and without gangrene Current Visit: Yes Status: Acute Plan: s/p laparoscopic hybrid ventral hernia repair with mesh - DC NGT - DC Smith - start clears - continue current treatment plan - anticipate ileus - ambulate with assist Physician Review: Patient Assessed, Agree with Above Assessment and Plan
[2022-04-11] MEDS: HYDROCODONE/APAP 5/325 MG TAB PO PRN ×2 (09:56→15:46)
--- NOTE | 2022-04-11 10:29 | P.PN ---
Date of Service: 04/11/22 Subjective: no nausea Passed gas Ambulatory w/no assistance looking forward to eating more regular food smith removed yesterday, voiding without issue ROS: A complete review of systems was performed and is negative except as mentioned above Physical Exam Gen: AOx3, NAD HEENT: normal conjunctiva, sclera anicteric CV: regular rate/rhythm, no edema Pulm: nonlabored respirations, clear bilaterally Abd: soft, mild tenderness throughout, most notably in RLQ Neuro: normal speech/affect, moves all extremities Problem List SBO secondary to incarcerated hernia; now s/p repair DM2 Hyperlipidemia Hypertension Ventral hernia DVT prophylaxis with SCDs surgery consulted, patient underwent hernia repair, lysis of adhesions; for incarcerated hernia IV fluids - decrease as patient's diet is advanced empiric antibiotics confirm, and resume home meds as appropriate pain meds as needed sliding scale insulin refused nicotine patch - h/o nicotine depenence NGT dc'd, tolerating sips, no nausea/vomiting Smith dc'd 04/10, voiding without issue advance diet slowly, anticipate ileus ambulate with assist Possible change to soft food diet ~24 hours Code: full Dispo: home, ~2-3 days
[2022-04-12] MEDS: PIPER TAZO 3.375 GM in NA CHLORIDE 0.9% 100 ML IV SCH ×2 (01:12→08:52)
[2022-04-12 04:00] LABS: Absolute Lymphocytes (CBC) 1.6 K/uL (0.7-4.9); Hematocrit 38.5 % (36.0-45.0); Lymphocytes % 27.2 % (15.3-44.8); MCV 88.1 fL (80-100); MPV 7.4 fL (7.6-11.3); RBC Red Blood Cell Count 4.37 M/uL (3.86-4.86)
[2022-04-12 04:26] LABS: Phosphorus 2.6 mg/dL (2.5-4.9); Potassium 3.7 mmol/L (3.5-5.1)
[2022-04-12] MEDS: D5.45NS W/KCL 20MEQ 1,000 ML IV SCH ×2 (05:00→13:39)
[2022-04-12] MEDS: MORPHINE 4 MG/ML SYR IV PRN ×2 (06:20→10:35)
[2022-04-12] MEDS ORDERED: KCL 20 MEQ/100 mL IVPB 20 MEQ/100 ML BAG IV SCH (07:00)
--- NOTE | 2022-04-12 07:18 | P.PN ---
Date of Service: 04/12/22 Subjective: no nausea Passed gas Pain is getting less severe tolerating liquid diet otherwise no new or worsening symptoms ROS: A complete review of systems was performed and is negative except as mentioned above Physical Exam Gen: AOx3, NAD HEENT: normal conjunctiva, sclera anicteric CV: regular rate/rhythm, no edema Pulm: nonlabored respirations, clear bilaterally Abd: soft, mild tenderness throughout, most notably in RLQ Neuro: normal speech/affect, moves all extremities Problem List SBO secondary to incarcerated hernia; now s/p repair DM2 Hyperlipidemia Hypertension Ventral hernia DVT prophylaxis with SCDs surgery consulted, patient underwent hernia repair, lysis of adhesions; for incarcerated hernia IV fluids - decrease as patient's diet is advanced empiric antibiotics confirm, and resume home meds as appropriate pain meds as needed sliding scale insulin refused nicotine patch - h/o nicotine depenence NGT dc'd, tolerating sips, no nausea/vomiting Smith dc'd 04/10, voiding without issue advance diet slowly, anticipate ileus ambulate with assist Possible change to soft food diet ~24 hours Code: full Dispo: home, ~12-24 hours
[2022-04-12] MEDS: INSULIN -REGULAR HUMAN 50 UNIT/0.5 ML ML SQ SCH ×3 (07:30→16:24)
[2022-04-12 08:39] VITALS: O2SAT 94
[2022-04-12] MEDS: ENOXAPARIN 40 MG/0.4 ML SQ SCH (08:52)
[2022-04-12 16:26] VITALS: BP 154/73; TEMP 96.8
--- NOTE | 2022-04-13 14:41 | P.DS ---
Admission Date: 04/09/22 Discharge Date: 04/13/22 Disposition: ROUTINE DISCHARGE Discharge Condition: GOOD Reason for Admission: Abdominal pain Consultations: General Surgery - Dr. Plunkett Brief History of Present Illness: Patient is a 56-year-old female with a past medical history significant for DM 2, HLD, hypertension, ventral hernia, nicotine dependence who presents with complaint of abdominal pain and abdominal distention onset yesterday. Patient rated pain as 10/10 in severity and described pain as cramping in quality. Patient reported that she has been having a ventral hernia for the past 8 years and has been increasing in size recently. Patient reported that she noticed remarkable increase in size of the hernia yesterday with increased tightness. Patient reported associated signs and symptoms of nausea. Patient denies any other signs and symptoms. Symptoms are aggravated by coughing and relieved by nothing. Patient decided to present to the hospital due to worsening symptoms. Hospital Course: Problem List SBO secondary to incarcerated hernia; now s/p repair DM2 Hyperlipidemia Hypertension Ventral hernia DVT prophylaxis with SCDs Patient presented with abdominal/right groin pain. She was found to have a large incarcerated hernia with bowel obstruction. General surgery was consulted, patient underwent lysis of adhesions and hernia repair. Postoperatively, she had gradual improvement, and her diet was advanced to soft foods. Pain was managed by oral medications, ambulating, voiding without issue. Deemed stable for discharge home Follow-up with Dr. Plunkett in ~1-2 weeks Discharged home with pain medication Augmentin for 10 days Vital Signs/Physical Exam: Temp Pulse Resp BP Pulse Ox 96.8 F 69 18 154/73 H 98 04/12/22 15:45 04/12/22 15:45 04/12/22 15:45 04/12/22 15:45 04/12/22 15:45 Physical Exam Gen: AOx3, NAD HEENT: normal conjunctiva, sclera anicteric CV: regular rate/rhythm, no edema Pulm: nonlabored respirations, clear bilaterally Abd: soft, mild tenderness throughout, most notably in RLQ Neuro: normal speech/affect, moves all extremities Laboratory Data at Discharge: WBC 6.00 K/uL (4.3-10.9) 04/12/22 03:35 Hgb 13.0 g/dL (12.0-15.0) 04/12/22 03:35 Hct 38.5 % (36.0-45.0) 04/12/22 03:35 Plt Count 201 K/uL (152-406) 04/12/22 03:35 Sodium 137 mmol/L (136-145) 04/12/22 03:35 Potassium 3.7 mmol/L (3.5-5.1) 04/12/22 03:35 BUN 4 mg/dL (7-18) L 04/12/22 03:35 Creatinine 0.25 mg/dL (0.55-1.02) L 04/12/22 03:35 Glucose 107 mg/dL (74-106) H 04/12/22 03:35 Phosphorus 2.6 mg/dL (2.5-4.9) 04/12/22 03:35 Magnesium 2.0 mg/dL (1.6-2.4) 04/12/22 03:35 Total Bilirubin 0.3 mg/dL (0.2-1.0) 04/09/22 08:15 AST 7 U/L (15-37) L 04/09/22 08:15 ALT 14 U/L (13-56) 04/09/22 08:15 Alkaline Phosphatase 102 U/L (45-117) 04/09/22 08:15 Lipase 23 U/L (13-75) 04/09/22 08:15 Home Medications: Amox/Clavulanate [Augmentin 875-125 Tab] 875 mg PO BID 10 Days #20 tab 04/12/22 Hydrocodone 5/APAP 325 [[place] 5/325*] 1 tab PO Q8H PRN #15 tab 04/12/22 New Medications: Amox/Clavulanate [Augmentin 875-125 Tab] 875 mg PO BID 10 Days #20 tab Hydrocodone 5/APAP 325 [[place] 5/325*] 1 tab PO Q8H PRN #15 tab PRN Reason: Pain Scale 5-7 (Moderate) Physician Discharge Instructions: Patient presented with abdominal/right groin pain. She was found to have a large incarcerated hernia with bowel obstruction. General surgery was consulted, patient underwent lysis of adhesions and hernia repair. Postoperatively, she had gradual improvement, and her diet was advanced to soft foods. Pain was managed by oral medications, ambulating, voiding without issue. Deemed stable for discharge home Follow-up with Dr. Plunkett in ~1-2 weeks Discharged home with pain medication Augmentin for 10 days Followup: [facility] [Primary Care Provider] - Time spent managing pt's care (in minutes): 45
== END 2022-04-12 17:20 | disposition home or self-care (01) | DRG 337 ==
LOC: ER 07:46 → ERHOLD 11:54 → 4TH 16:56
PROVIDERS: ADMIT Hospitalist; ATTEND Hospitalist
PROC: 0DN83ZZ Release Small Intestine, Percutaneous Approach (ICD-10-PCS; 2022-04-09)
PROC: 0WUF4JZ Supplement Abdominal Wall with Synthetic Substitute, Percutaneous Endoscopic Approach (ICD-10-PCS; 2022-04-09)
PROC: 0DNE4ZZ Release Large Intestine, Percutaneous Endoscopic Approach (ICD-10-PCS; principal; 2022-04-09 15:00)
DX: K43.6 Other and unspecified ventral hernia with obstruction, without gangrene (principal); E11.9 Type 2 diabetes mellitus without complications; I10 Essential (primary) hypertension; E78.5 Hyperlipidemia, unspecified; F17.210 Nicotine dependence, cigarettes, uncomplicated; Z88.8 Allergy status to other drugs, medicaments and biological substances; Z90.49 Acquired absence of other specified parts of digestive tract; Z20.822 Contact with and (suspected) exposure to COVID-19
CPT/HCPCS: 36415; 74018; 74177; 80048; 80053; 81003; 82947; 83690; 83735; 84100; 84132; 85025; 87811; 94010; 96361; 96365; 96375; 97116; 97161; 99285; C1781; J1100; J1170; J1650; J1815; J2250; J2405; J2543; J2550; J2704; J3010; J3480; J7030; J7040; Q9967

== ENCOUNTER 2023-10-26 02:54 | Emergency (ER) | payer OTHER, SELFPAY ==
[2023-10-26] MEDS ORDERED: KETAMINE HCL IN 0.9 % NACL 50 MG/5 ML SYRINGE IV ONE (03:39)
[2023-10-26] MEDS ORDERED: MIDAZOLAM HCL 5 ML ONE (04:54)
--- NOTE | 2023-10-26 07:30 | ER ---
Nurse's Notes [facility] Name: Carin Mendoza Age: 58 yrs Sex: Female : 1965 Arrival Date: 10/26/2023 Time: 02:54 Bed 6 Private MD: Diagnosis: Foreign body to left external auditory canal Presentation: 10/25 02:57 Chief complaint: EMS states: nam in left ear. Coronavirus screen: Client denies vc1 travel out of the [place] in the last 14 days. At this time, the client does not indicate any symptoms associated with coronavirus-19. Ebola Screen: Patient negative for fever greater than or equal to 101.5 degrees Fahrenheit, and additional compatible Ebola Virus Disease symptoms Patient denies exposure to infectious person. Patient denies travel to an Ebola-affected area in the 21 days before illness onset. No symptoms or risks identified at this time. Initial Sepsis Screen: Does the patient meet any 2 criteria? No. Patient's initial sepsis screen is negative. Does the patient have a suspected source of infection? No. Patient's initial sepsis screen is negative. Risk Assessment: Do you want to hurt yourself or someone else? Patient reports no desire to harm self or others. Onset of symptoms was October 26, 2023. 02:57 Method Of Arrival: EMS: [facility] vc1 02:57 Acuity: NOELLE 4 vc1 Historical: - Allergies: 04:04 Axid; jj7 - PMHx: 04:04 Hypertensive disorder; Diabetes mellitus; jj7 - PSHx: 04:04 Cholecystectomy; section; jj7 - Immunization history:: Adult Immunizations not up to date, Client reports having NOT received the Covid vaccine. - Infectious Disease History:: Denies. - Social history:: Smoking status: Patient reports the use of cigarette tobacco products, smokes one pack cigarettes per day. Patient uses alcohol, occasionally. Patient/guardian denies using street drugs, IV drugs. Screenin:56 [facility] ED Fall Risk Assessment (Adult) History of falling in the last 3 months, vc1 including since admission No falls in past 3 months (0 pts) Confusion or Disorientation No (0 pts) Intoxicated or Sedated No (0 pts) Impaired Gait No (0 pts) Mobility Assist Device Used No (0 pt) Altered Elimination No (0 pt) Score/Fall Risk Level 0 - 2 = Low Risk Oriented to surroundings, Maintained a safe environment, Educated pt \T\ family on fall prevention, incl call for assistance when getting out of bed. Abuse screen: Denies threats or abuse. Nutritional screening: No deficits noted. Tuberculosis screening: No symptoms or risk factors identified. Assessment: 03:03 General: Appears in no apparent distress. uncomfortable, Behavior is calm, cooperative, jj7 agitated. Pain: Complains of pain in left ear. EENT: Ear canal w/ foreign body noted from left ear Reports BUG IN LEFT EAR. 07:15 Reassessment: DR ARENAS AT B/S. PT MOVED TO TREATMENT ROOM. bp 07:25 Reassessment: Patient is alert, oriented x 3, equal unlabored respirations, skin aa5 warm/dry/pink. Vital Signs: 02:57 BP 128 / 59; Pulse 77; Resp 19; Temp 97.6; Pulse Ox 98% ; Weight 62.6 kg; Height 5 ft. vc1 2 in. ; Pain 10/10; 03:58 BP 133 / 74; Pulse 80; Resp 17; Pulse Ox 99% ; jj7 05:08 BP 162 / 78; Pulse 81; Resp 13; Pulse Ox 98% on 2 lpm NC; jj7 06:00 BP 125 / 57; Pulse 70; Resp 18; Pulse Ox 99% ; jj7 06:57 BP 107 / 52; Pulse 74; Resp 17; Pulse Ox 100% ; jj7 02:57 Body Mass Index 25.24 (62.60 kg, 157.48 cm) vc1 02:57 Pain Scale: Adult vc1 ED Course: 02:56 Patient arrived in ED. vc1 02:56 Laine Wakefield, TITO is Primary Nurse. vc1 02:57 Viet Morrell MD is Attending Physician. rt 03:03 Patient has correct armband on for positive identification. Bed in low position. Call jj7 light in reach. Side rails up X 1. Provided Education on:. Provided Education on: USE OF CALL GERMAIN. Warm blanket given. 03:06 Triage completed. vc1 03:50 Inserted saline lock: 20 gauge in right antecubital area, using aseptic technique. jj7 Flushed with 10 mL NS. 07:01 Report given to FAN FRANCIS. jj7 07:18 Attending Physician role handed off by Viet Morrell MD rn 07:18 Smiba Yousif MD is Attending Physician. rn 07:25 Assist provider with foreign body removal of an insect from left ear canal. using aa5 alligator clamps, Set up for procedure. Performed by Amrita Arenas MD Patient tolerated well. 07:30 Amrita Arenas MD is Referral Physician. rn 07:35 Primary Nurse role handed off by Laine Wakefield RN eb 07:58 IV discontinued, intact, bleeding controlled, No redness/swelling at site. Pressure hb dressing applied. Administered Medications: 03:03 Drug: Lidocaine Infiltration (2 %) 5 ml 5 ml Infiltration once; left ear Volume: 5 ml; jj7 Route: Infiltration; 03:30 Follow up: Response: Pain is unchanged, physician notified jj7 05:03 Drug: Ketamine IVP 75 mg IVP once {Note: DR WANTED THE REMAINING 25MG GIVEN.} Route: jj7 IVP; Site: right antecubital; 05:04 Follow up: Response: RASS: Light sedation (-2) jj7 Medication: 03:03 VIS not applicable for this client. jj7 Outcome: 07:30 Discharge ordered by MD. rn 07:58 Discharged to home ambulatory, 07:58 Condition: stable 07:58 Discharge instructions given to patient, Instructed on discharge instructions, follow up and referral plans. medication usage, Demonstrated understanding of instructions, follow-up care, medications, Prescriptions given X 1, 07:58 Patient left the ED. hb Signatures: Simba Yousif MD MD rn Calderon, Audri, RN RN aa5 Ana María Rene RN RN Sergey Quan RN RN bp Carin Quan Laine Wakefield RN RN vc1 Martin Morales RN RN jj7 Viet Morrell MD MD rt Corrections: (The following items were deleted from the chart) 06:01 05:08 BP 162 / 78; Pulse 81bpm; Resp 13bpm; Pulse Ox 98%; jj7 jj7
--- NOTE | 2023-10-26 07:30 | EDPHYS ---
Physician Documentation [facility] Name: Carin Mendoza Age: 58 yrs Sex: Female : 1965 Arrival Date: 10/26/2023 Time: 02:54 Bed 6 Private MD: ED Physician Simba Yousif HPI: 10/25 03:04 This 58 yrs old Female presents to ER via Unassigned with complaints of rt Foreign body. 03:04 Patient presents to the ED with reported foreign body to the left ear. Patient poured rt hot liquid in the ear to try to get the insect out. Denies other acute complaints at this time, symptoms are moderate in severity, no other aggravating alleviating factors.. Historical: - Allergies: 04:04 Axid; jj7 - PMHx: 04:04 Hypertensive disorder; Diabetes mellitus; jj7 - PSHx: 04:04 Cholecystectomy; section; jj7 - Immunization history:: Adult Immunizations not up to date, Client reports having NOT received the Covid vaccine. - Infectious Disease History:: Denies. - Social history:: Smoking status: Patient reports the use of cigarette tobacco products, smokes one pack cigarettes per day. Patient uses alcohol, occasionally. Patient/guardian denies using street drugs, IV drugs. ROS: 03:04 Constitutional: Negative for fever, chills, and weight loss, Skin: Negative for injury, rt rash, and discoloration, Neuro: Negative for headache, weakness, numbness, tingling, and seizure, 03:04 ENT: Positive for foreign body sensation, Exam: 03:04 Constitutional: This is a well developed, well nourished patient who is awake, alert, rt and in no acute distress. Head/Face: Normocephalic, atraumatic. Skin: Warm, dry with normal turgor. Normal color with no rashes, no lesions, and no evidence of cellulitis. 03:04 ENT: Left EAC is erythematous, visualized TM appears to be intact, insect noted against TM. Vital Signs: 02:57 BP 128 / 59; Pulse 77; Resp 19; Temp 97.6; Pulse Ox 98% ; Weight 62.6 kg; Height 5 ft. vc1 2 in. ; Pain 10/10; 03:58 BP 133 / 74; Pulse 80; Resp 17; Pulse Ox 99% ; j7 05:08 BP 162 / 78; Pulse 81; Resp 13; Pulse Ox 98% on 2 lpm NC; j7 06:00 BP 125 / 57; Pulse 70; Resp 18; Pulse Ox 99% ; jj7 06:57 BP 107 / 52; Pulse 74; Resp 17; Pulse Ox 100% ; jj7 02:57 Body Mass Index 25.24 (62.60 kg, 157.48 cm) vc1 02:57 Pain Scale: Adult vc1 Procedures: 06:42 Foreign Body Removal: an insect, from the left ear canal, by using alligator clamps, rt The patient tolerated the removal poorly, Abdomen and leg were removed, multiple attempts were made to remove the rest of the thorax with waiting which are firmly adherent to the TM, further attempts were stopped as I do not believe I can safely perform this procedure due to patient movement. Moderate sedation: Pre-procedure assessment: the patient has been NPO 5 hour(s) prior to arrival, ASA physical classification: II - mild/mod systemic disease that does not interfere with daily routines, Airway assessment: able to hyperextend neck, able to maintain airway, can open mouth without difficulty, Mallampati classification of tongue size: I - faucial pillars, soft palate, and uvula can be fully visualized, Monitoring during procedure: cardiac technician, continuous pulse oximetry, nurse at bedside at all times, Medications employed: Ketamine, 100 mg(s), Versed, 5 mg(s), Post-procedure assessment: the patient is not sedated, Palacios sedation score: 1 - patient anxious or agitated or both, Respiratory status: even and unlabored, a reversal agent was not used. MDM: 02:58 Patient medically screened. rt 06:42 Differential Diagnosis Foreign body. Data reviewed: vital signs, nurses notes. rt Management of patient was discussed with the following: Criminal Justice Teacher: Discussed with Dr. Mariscal with ENT, will evaluate patient in the ED. I considered the following discharge prescriptions or medication management in the emergency department Medications were administered in the Emergency Department. See MAR. Care significantly affected by the following chronic conditions: Hypertension. Counseling: I had a detailed discussion with the patient and/or guardian regarding the historical points, exam findings, and any diagnostic results supporting the discharge/admit diagnosis, the need for outpatient follow up. Response to treatment: the patient's symptoms have mildly improved after treatment. 07:29 ED course: Evaluated and treated by Dr. mariscal, namrata to dc with abx drops. Will f/u with rn Dr. Mariscal in 2 weeks. . Administered Medications: 03:03 Drug: Lidocaine Infiltration (2 %) 5 ml 5 ml Infiltration once; left ear Volume: 5 ml; jj7 Route: Infiltration; 03:30 Follow up: Response: Pain is unchanged, physician notified jj7 05:03 Drug: Ketamine IVP 75 mg IVP once {Note: DR WANTED THE REMAINING 25MG GIVEN.} Route: jj7 IVP; Site: right antecubital; 05:04 Follow up: Response: RASS: Light sedation (-2) jj7 Disposition Summary: 10/26/23 07:30 Discharge Ordered Notes: Location: Home rn Problem: new rn Symptoms: have improved rn Condition: Stable rn Diagnosis - Foreign body to left external auditory canal rn Followup: rt - With: Amrita Mariscal MD - When: 2 - 3 days - Reason: Discharge Instructions: - Discharge Summary Sheet rt - Ear Foreign Body rt - Moderate Conscious Sedation, Adult, Care After rt Forms: - Medication Reconciliation Form rn - Antibiotic rn surgery - Prescription Opioid Use rn - Patient Portal Instructions rn - Leadership Thank You Letter rn Prescriptions: - ofloxacin 0.3 % Otic drops - instill 5 drop OTIC route every 24 hours for 7 days; 1 unit; Refills: 0, rn Product Selection Permitted Signatures: Simba Yousif MD MD rn Johnson, Juwairiyah, RN RN jjViet Alvarez MD MD rt
[2023-10-26 08:18] VITALS: TEMP 97.6
[2023-10-26 08:27] VITALS: BP 107/52; O2SAT 100
--- NOTE | 2023-10-26 09:38 | OP ---
Date of Procedure: 10/26/2023 Surgeon: Amrita Hercules MD Location: Emergency room, [facility]. Indication For Procedure: Ms. Mendoza was at home and felt something crawling in her ear which she pr esumed was an insect. They reportedly put hot water in the ear to try to kill the insect and then at tempted removal at home with tweezers but was unsuccessful and contacted the Emergency Services and w as brought by ambulance to the emergency room. In the emergency room, the ER doctor evaluated her an d attempted removal using an alligator forceps under conscious sedation due to tolerance and anxiety, but was able to remove only a portion of the insect and ENT was requested for additional procedure. Preoperative Diagnosis: Foreign body, left ear canal with laceration. Postoperative Diagnosis: Foreign body, left ear canal with laceration. Procedure: Removal of ear canal foreign body. Description Of Procedure: The patient was positioned reclined and supine with head turned towards th e right for exposure of the left ear. The left ear was examined using an operating microscope and th ere was a moderate laceration of the anterior/floor of the ear canal with blood, but no active bleedi ng. A portion of insect including wings and part of the thorax were noted deep in the ear canal and immediately adjacent to the eardrum. Using small alligator forceps, the insect was removed in severa l fragments with the last fragment grasped and removed being an approximately half of the thorax with attached wings and legs. After removal, the ear was reinspected and the ear canal appeared intact w ith no evidence of hematoma or other injury. The laceration of the ear canal remained hemostatic and the procedure was concluded. Complications: None. Specimens: None. Disposition: The patient will be discharged to home and is instructed for dry ear precautions and wi ll be prescribed Ofloxacin eardrops by the emergency room to prevent infection of the canal. She is instructed to follow up in the ENT Clinic in 2 weeks with myself or one of my nurse practitioners for re-evaluation and to ensure healing of the ear canal and to manage any unexpected complication such as infection. The patient may require removal of debris or blood clot at that time depending on the presentation and physical exam findings. VINCENT/SUSY Voice ID: [id number] Report ID: [id number]
== END 2023-10-26 07:58 | disposition home or self-care (01) ==
LOC: ER 02:54 → EDBD 02:54 → MERGE 02:54 → ER 07:58
PROC: 09C4XZZ Extirpation of Matter from Left External Auditory Canal, External Approach (ICD-10-PCS; principal; 2023-10-26)
DX: T16.2XXA Foreign body in left ear, initial encounter (principal); F17.210 Nicotine dependence, cigarettes, uncomplicated
CPT/HCPCS: 96374; 99284; J2250

== ENCOUNTER 2024-06-05 07:44 | Emergency (ER) | payer OTHER, SELFPAY ==
--- OUTSIDE RECORDS SUMMARY | 2024-06-05 07:47 | XMS REPORT | Continuity of Care Document ---
Author Name Unknown Address [address] [place] [address] [facility] Address [address] [place] [address] Care Team Providers Care Research Dietitian Name Role Phone KELI Attending Clinician Unavailable KELI Admitting Clinician Unavailable Encounters Start Date/Time End Date/Time Encounter Type Admission Type Attending Clinicians Care Facility Care Department Encounter ID Source 2022-04-26 13:32:54 2022-04-26 13:32:54 Outpatient [facility] [id number] 2021-12-04 16:33:04 2021-12-04 16:33:04 Outpatient [facility] [id number] 2021-08-24 09:38:00 2021-08-24 09:38:00 Outpatient [facility] [id number] [facility] Program
[2024-06-05] MEDS ORDERED: HYDROCODONE/APAP 5/325 MG TAB ONE (07:57)
[2024-06-05] MEDS ORDERED: IBUPROFEN 400 MG TAB ONE (07:57)
[2024-06-05] MEDS ORDERED: IBUPROFEN 200 MG TAB PO ONE (07:57)
--- NOTE | 2024-06-05 09:00 | EDPHYS ---
Physician Documentation [facility] Name: Carin Mendoza Age: 58 yrs Sex: Female : 1965 Arrival Date: 06/05/2024 Time: 07:44 Bed 14 Private MD: ED Physician Simba Yousif HPI: 06/05 08:56 This 58 yrs old Female presents to ER via EMS with complaints of Jaw Pain - rn and swelling. 08:56 The patient presents with pain, swelling. Onset: The symptoms/episode began/occurred 2 rn day(s) ago. Patient reports started with dental pain 2 days ago, has had dental pain with swelling before. Swelling and pain has progressed to involve the left cheek. Does not extend towards neck. No reported fever or chills. No trouble breathing or swallowing.. Historical: - Allergies: 08:02 Axid; ph - PMHx: 08:02 Diabetes - NIDDM; diabetes mellitus; Hyperlipidemia; Hypertension; ph - PSHx: 08:02 section; Cholecystectomy; ph - Immunization history:: Adult Immunizations unknown. - Infectious Disease History:: Denies. - Social history:: Smoking status: Patient reports the use of cigarette tobacco products, smokes one pack cigarettes per day. - Family history:: not pertinent. - Hospitalizations: : No recent hospitalization is reported. ROS: 08:56 Constitutional: Negative for fever, chills, and weight loss, ENT: Positive for oral rn pain and cheek swelling Neck: Negative for injury, pain, and swelling, Respiratory: Negative for shortness of breath, cough, wheezing, and pleuritic chest pain, Exam: 08:56 Constitutional: This is a well developed, well nourished patient who is awake, alert, rn and in no acute distress. ENT: Poor dentition without evidence of dental abscess. Swelling of left buccal space with induration and swelling, no fluctuance, does not extend to neck or submental space at this time. Neck: No submental or submandibular swelling noted. No crepitus. Vital Signs: 07:47 BP 160 / 69; Pulse 87; Resp 18; Temp 99.1; Pulse Ox 98% ; Weight 67.13 kg; Height 5 ft. ph 2 in. ; 09:16 BP 154 / 78; Pulse 86; Resp 18; Temp 98.4; Pulse Ox 99% ; ph 07:47 Body Mass Index 27.07 (67.13 kg, 157.48 cm) ph MDM: 07:48 Medical Screening Exam initiated rn 08:56 Differential diagnosis: dental caries, dental abscess, Facial cellulitis. Data rn reviewed: vital signs, nurses notes, and as a result, I will discharge patient. Counseling: I had a detailed discussion with the patient and/or guardian regarding the historical points, exam findings, and any diagnostic results supporting the discharge/admit diagnosis, the need for outpatient follow up, to return to the emergency department if symptoms worsen or persist or if there are any questions or concerns that arise at home. Special discussion: I discussed with the patient/guardian in detail that at this point there is no indication for admission to the hospital. It is understood, however, that if the symptoms persist or worsen the patient needs to return immediately for re-evaluation. Based on the history and exam findings, there is no indication for further emergent testing or inpatient evaluation. I discussed with the patient/guardian the need to see a dentist for further evaluation of the symptoms. ED course: Will place on antibiotics. No evidence that she needs incision and drainage at this time. Definitely facial cellulitis in origin likely dental in origin. Given strict return precautions and understands if worsens needs to come back to rule out formation of abscess.. Administered Medications: 08:01 Drug: Ibuprofen PO 600 mg PO once Route: PO; ph 09:13 Follow up: Response: No adverse reaction ph 08:02 Drug: Clindamycin PO 300 mg PO once Route: PO; ph 09:13 Follow up: Response: No adverse reaction ph 08:02 Drug: HYDROcodone-acetaminophen PO 5 mg-325 mg 1 tabs PO once Route: PO; ph 09:13 Follow up: Response: No adverse reaction ph Disposition Summary: 06/05/24 09:00 Discharge Ordered Notes: Location: Home rn Problem: new rn Symptoms: are unchanged rn Condition: Stable rn Diagnosis - Cellulitis of face rn - Dental caries, unspecified rn Followup: rn - With: Private Physician - When: As needed - Reason: Recheck today's complaints, Re-evaluation by your physician Discharge Instructions: - Discharge Summary Sheet rn - Cellulitis, Adult rn - Dental Caries, Adult rn - Dental Pain rn Forms: - Medication Reconciliation Form rn - Antibiotic rn telephone triage - Prescription Opioid Use rn - Patient Portal Instructions rn - Leadership Thank You Letter rn Prescriptions: - Clindamycin HCl 300 mg Oral Capsule - take 1 capsule ORAL route every 6 hours for 10 days; 40 capsule; Refills: 0, rn Product Selection Permitted - Tramadol 50 mg Oral Tablet - take 1 tablet ORAL route every 8 hours as needed; 12 tablet; Refills: 0, rn Product Selection Permitted Signatures: Simba Yousif MD MD rn Hall, Patricia, RN RN ph
--- NOTE | 2024-06-05 09:00 | ER ---
Nurse's Notes [facility] Name: Carin Mendoza Age: 58 yrs Sex: Female : 1965 Arrival Date: 06/05/2024 Time: 07:44 Bed 14 Private MD: Diagnosis: Cellulitis of face;Dental caries, unspecified Presentation: 06/05 07:47 Chief complaint: EMS states: L sided jaw pain and swelling r/t cavity/broken tooth. ph Coronavirus screen: Vaccine status: Patient reports being unvaccinated. Ebola Screen: No symptoms or risks identified at this time. Initial Sepsis Screen: Does the patient meet any 2 criteria? No. Patient's initial sepsis screen is negative. Does the patient have a suspected source of infection? No. Patient's initial sepsis screen is negative. Risk Assessment: Do you want to hurt yourself or someone else? Patient reports no desire to harm self or others. Onset of symptoms was June 05, 2024. 07:47 Method Of Arrival: EMS: [facility] 07:47 Acuity: NOELLE 4 ph Triage Assessment: 07:50 General: Appears in no apparent distress. uncomfortable, Behavior is calm, cooperative. ph Pain: Complains of pain in left jaw. EENT: Poor dentition noted. Neuro: Level of Consciousness is awake, alert, obeys commands, Oriented to person, place, time, situation. Cardiovascular: Capillary refill < 3 seconds in bilateral fingers Patient's skin is warm and dry. Respiratory: Airway is patent Respiratory effort is even, unlabored, Respiratory pattern is regular, symmetrical. GI: No signs and/or symptoms were reported involving the gastrointestinal system. Musculoskeletal: Circulation, motion, and sensation intact. Range of motion: intact in all extremities. Historical: - Allergies: 08:02 Axid; ph - PMHx: 08:02 Diabetes - NIDDM; diabetes mellitus; Hyperlipidemia; Hypertension; ph - PSHx: 08:02 section; Cholecystectomy; ph - Immunization history:: Adult Immunizations unknown. - Infectious Disease History:: Denies. - Social history:: Smoking status: Patient reports the use of cigarette tobacco products, smokes one pack cigarettes per day. - Family history:: not pertinent. - Hospitalizations: : No recent hospitalization is reported. Screenin:03 [facility] ED Fall Risk Assessment (Adult) History of falling in the last 3 months, ph including since admission No falls in past 3 months (0 pts) Confusion or Disorientation No (0 pts) Intoxicated or Sedated No (0 pts) Impaired Gait No (0 pts) Mobility Assist Device Used No (0 pt) Altered Elimination No (0 pt) Score/Fall Risk Level 0 - 2 = Low Risk Oriented to surroundings, Maintained a safe environment, Hourly rounding (assess needs \T\ fall precautionary measures) done. Abuse screen: Denies threats or abuse. Denies injuries from another. Nutritional screening: No deficits noted. Tuberculosis screening: No symptoms or risk factors identified. Assessment: 08:30 General: SEE TRIAGE ASSESSMENT . ph Vital Signs: 07:47 BP 160 / 69; Pulse 87; Resp 18; Temp 99.1; Pulse Ox 98% ; Weight 67.13 kg; Height 5 ft. ph 2 in. ; 09:16 BP 154 / 78; Pulse 86; Resp 18; Temp 98.4; Pulse Ox 99% ; ph 07:47 Body Mass Index 27.07 (67.13 kg, 157.48 cm) ph ED Course: 07:46 Patient arrived in ED. ph 07:48 Simba Yousif MD is Attending Physician. rn 07:49 Triage completed. ph 07:53 Evnone Singleton, TITO is Primary Nurse. ph 08:04 Patient has correct armband on for positive identification. Bed in low position. Call ph light in reach. Side rails up X 1. Pulse ox on. NIBP on. Door closed. Noise minimized. 08:04 Arm band placed on Patient placed in an exam room. ph 08:04 No provider procedures requiring assistance completed. Patient did not have IV access ph during this emergency room visit. Administered Medications: 08:01 Drug: Ibuprofen PO 600 mg PO once Route: PO; ph 09:13 Follow up: Response: No adverse reaction ph 08:02 Drug: Clindamycin PO 300 mg PO once Route: PO; ph 09:13 Follow up: Response: No adverse reaction ph 08:02 Drug: HYDROcodone-acetaminophen PO 5 mg-325 mg 1 tabs PO once Route: PO; ph 09:13 Follow up: Response: No adverse reaction ph Medication: 08:04 VIS not applicable for this client. ph Outcome: 09:00 Discharge ordered by . rn 09:17 Discharged to home ambulatory, ph 09:17 Condition: good 09:17 Discharge instructions given to patient, Instructed on discharge instructions, follow up and referral plans. medication usage, Demonstrated understanding of instructions, follow-up care, medications, Prescriptions given X 2, Patient left the ED. ph Signatures: Simba Yousif MD MD rn [place] RN RN
[2024-06-07 15:45] VITALS: BP 154/78; TEMP 98.4; O2SAT 99
== END 2024-06-05 09:17 | disposition home or self-care (01) ==
LOC: ER 07:44
DX: L03.211 Cellulitis of face (principal); K02.9 Dental caries, unspecified
CPT/HCPCS: 99284